=== PATIENT | male | born 1930 | race Caucasian/White ===

== ENCOUNTER 2016-10-27 16:10 | Emergency (ER) | payer MEDICARE ==
[~2016-10-27] VITALS: Ht 180.3 cm; Wt 81.8 kg
--- OUTSIDE RECORDS SUMMARY | 2016-10-27 16:15 | XMS REPORT | Continuity of Care Document ---
Author Author [facility] Address Unknown Phone Unavailable Allergies Medications Problems Date Dx Coded Attending Type Code Diagnosis Diagnosed By 07/27/2014 MARIO BIGGS, IGNACIO M Ot 729.5 07/27/2014 MARIO BIGGS, IGNACIO M Ot 924.3 07/27/2014 MARIO BIGGS, IGNACIO M Ot E928.9 08/03/2014 MARIO BIGGS, IGNACIO M Ot 729.5 08/03/2014 MARIO BIGGS, IGNACIO M Ot 924.3 08/03/2014 MARIO BIGGS, IGNACIO M Ot E928.9 09/09/2015 MARIO BIGGS, IGNACIO M Ot Z51.81 09/09/2015 MARIO BIGGS, IGNACIO M Ot Z79.899 09/14/2015 MARIO BIGGS, IGNACIO M Ot I71.2 09/14/2015 MARIO BIGGS, IGNACIO M Ot K44.9 09/30/2015 MARIO BIGGS, IGNACIO M Ot Z51.81 09/30/2015 MARIO BIGGS, IGNACIO M Ot Z79.899 10/08/2015 MARIO BIGGS, IGNACIO Lee Ot I71.2 THORACIC AORTIC ANEURYSM, 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 10/08/2015 MARIO BIGGS, IGNACIO Lee Ot K44.9 DIAPHRAGMATIC HERNIA WITHOUT OBSTRUCTION 12/02/2015 MARIO BIGGS, IGNACIO Lee Ot I71.2 THORACIC AORTIC ANEURYSM, 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 12/02/2015 MARIO BIGGS, IGNACIO Lee Ot K44.9 DIAPHRAGMATIC HERNIA WITHOUT OBSTRUCTION 02/23/2016 Ot I48.91 UNSPECIFIED ATRIAL FIBRILLATION 02/23/2016 Ot I48.91 UNSPECIFIED ATRIAL FIBRILLATION 02/25/2016 Ot I48.91 UNSPECIFIED ATRIAL FIBRILLATION 02/25/2016 Ot R73.09 OTHER ABNORMAL GLUCOSE 02/26/2016 Ot I48.91 UNSPECIFIED ATRIAL FIBRILLATION 02/26/2016 Ot R73.09 OTHER ABNORMAL GLUCOSE 02/28/2016 Ot I48.91 UNSPECIFIED ATRIAL FIBRILLATION 02/28/2016 Ot R73.09 OTHER ABNORMAL GLUCOSE 02/29/2016 Ot I48.91 UNSPECIFIED ATRIAL FIBRILLATION 02/29/2016 Ot R06.09 OTHER FORMS OF DYSPNEA 03/02/2016 MARIO BIGGS, IGNACIO Lee Ot 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 THORACIC AORTIC ANEURYSM, 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 03/21/2016 Ot I48.91 UNSPECIFIED ATRIAL FIBRILLATION 03/21/2016 Ot R06.09 OTHER FORMS OF DYSPNEA 03/22/2016 MARIO BIGGS IGNACIO Jesus Ot 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 THORACIC AORTIC ANEURYSM, 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 04/06/2016 MARIO BIGGS IGNACIO Lee Ot 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 THORACIC AORTIC ANEURYSM, 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 Procedures Results Test Result Range Complete blood count (CBC) with automated white blood cell (WBC) differential - 02/23/16 10:15 Blood automated leukocyte count 4.32 4.0 -11.0 Erythrocytes 4.68 4.50-5.50 12.0-16.0;g/dL 16.1 13.5-17.0 Hematocrit 45.70 39.00-50.00 Automated erythrocyte mean corpuscular volume 98 80-100 Mean corpuscular hemoglobin (MCH) determination 34.4 26.0-34.0 Automated erythrocyte mean corpuscular hemoglobin concentration measurement ( mass/volume) 35.2 31.0-37.0 Erythrocyte distribution width 12.0 11.8 -15.6 Automated blood platelet count 119 150- 450 Automated blood platelet mean volume measurement 9.7 6.0-9.5 Automated neutrophil percentage 51 51- 67 Lymphocytes/100 leukocytes 28 20-46 Automated monocyte percentage 15 3-11 Eosinophil count auto 5 0-4 Automated basophil percentage 1 0-2 Automated blood neutrophil count 2.2 Blood lymphocytes count (number/volume) 1.2 Automated blood monocyte count 0.6 Blood absolute eosinophil count 0.2 Basophils 0.0 Comprehensive metabolic panel - 02/23/16 10:15 Sodium measurement 117 70-110 Carbon dioxide measurement 23 22-29 Serum or plasma anion gap 18.9 3-15 BLOOD UREA NITROGEN 13 7-18 CREATININE SERUM 0.79 0.8-1.5 Brucella species antibody panel (IgG, IgM) 16 10-20 Estimated glomerular filtration rate (GFR) 112.8 Estimated glomerular filtration rate (GFR) non- 93.2 OSMOLALITY,CALCULATED 280 280-300 CALCIUM 9.8 8.8-10.8 Calculated ionized calcium measurement 4.3 3.8-4.6 BILIRUBIN,TOTAL 1.2 0.1-1.0 Serum or plasma alkaline phosphatase measurement 111 38-126 ASPARTATE AMINO TRANSFERASE 23 15-37 ALANINE AMINOTRANSFERASE 27 30-65 Serum or plasma total protein measurement 7.2 6.4-8.5 Serum or plasma albumin measurement 4.2 3.4-5.0 Serum or plasma albumin/globulin mass ratio 1.400 1.1-1.8 NT-Pro BNP - 02/23/16 10:15 NT-Pro BNP 284 0-450 HEMOGLOBIN A1C* - 02/23/16 10:15 HEMOGLOBIN A1C* 5.3 4.0-6.0 HEMOGLOBIN A1C* - 02/25/16 10:15 HEMOGLOBIN A1C* 5.3 4.0-6.0 Encounters ACCT No. Visit Date/Time Discharge Status Pt. Type Provider Facility Loc./Unit Complaint [id number] 07/13/2014 14:56:00 2014 23:59:59 CLS Outpatient MARIO BIGGS, [facility] RAD [id number] 02/25/2016 11:17:00 ACT Outpatient MARIO BIGGS, [facility] RAD AORTIC ANEURYSM I71.2 [id number] 02/23/2016 11:15:00 Document Registration [id number] 09/07/2015 08:21:00 ACT Outpatient MARIO BIGGS, [facility] RAD [id number] 09/06/2015 14:04:00 ACT Outpatient MARIO BIGGS, [facility] LAB
--- OUTSIDE RECORDS SUMMARY | 2016-10-27 16:17 | XMS REPORT | Continuity of Care Document ---
Author Author [facility] Address Unknown Phone Unavailable Allergies Medications [...] Status Pt. Type Provider Facility Loc./Unit Complaint [id number] 07/13/2014 14:56:00 2014 23:59:59 CLS Outpatient MARIO BIGGS, [facility] RAD [id number] 02/25/2016 11:17:00 ACT Outpatient MARIO BIGGS, [facility] RAD AORTIC ANEURYSM I71.2 [id number] 02/23/2016 11:15:00 Document Registration [id number] 09/07/2015 08:21:00 ACT Outpatient MARIO BIGGS, [facility] RAD [id number] 09/06/2015 14:04:00 ACT Outpatient MARIO BIGGS, [facility] LAB
[2016-10-27] MEDS ORDERED: TAMS0.4C2 PO (16:41)
[2016-10-27] MEDS ORDERED: LOVA20TA2 PO (16:41)
--- NOTE | 2016-10-27 17:22 | Diagnostic Imaging Report ---
INDICATION: Pain after fall. Three views were obtained. FINDINGS: There is a minimally displaced oblique fracture through the distal fifth metatarsal. There are otherwise mild degenerative changes. There is no other fracture or dislocation. Soft tissues are unremarkable. IMPRESSION: Minimally displaced oblique fracture through the distal aspect of the left fifth metatarsal. Mild degenerative changes in the ankle and midfoot. Dictated by: Dictated on workstation # [id number]
--- NOTE | 2016-10-27 17:23 | Diagnostic Imaging Report ---
INDICATION: Pain after fall. Three views were obtained. FINDINGS: The alignment of the ankle is normal. The plafonds and talar dome are intact. Ankle mortise is symmetric. There are degenerative changes. IMPRESSION: Degenerative changes, otherwise unremarkable. Dictated by: Dictated on workstation # [id number]
[2016-10-27] MEDS ORDERED: TRM50T PO (17:30)
[2016-10-27 17:48] VITALS: BP 114/71
== END 2016-10-27 17:52 | disposition home or self-care (01) ==
LOC: ED 16:12
DX: S93.492A Sprain of other ligament of left ankle, initial encounter (principal); W18.39XA Other fall on same level, initial encounter; Y92.009 Unspecified place in unspecified non-institutional (private) residence as the place of occurrence of the external cause
CPT/HCPCS: 73610; 73630; 99283; L4386

== ENCOUNTER → 2016-10-31 | Outpatient (REF) | payer MEDICARE ==
[~2016-10-31] MED LIST: LOVA20TA2 PO; TAMS0.4C2 PO; TRM50T PO
== END ==
LOC: LAB 11:23
PROVIDERS: ATTEND Physician Assistant Surgical
DX: I71.2 Thoracic aortic aneurysm, without rupture (principal)
CPT/HCPCS: 80048

== ENCOUNTER → 2016-10-31 | Outpatient (CLI) | payer MEDICARE ==
--- NOTE | 2016-10-31 14:40 | Diagnostic Imaging Report ---
PROCEDURE: CT chest with contrast only. TECHNIQUE: Multiple contiguous axial images were obtained through the chest after administration of intravenous contrast. INDICATION: Followup ascending aortic root aneurysm. Comparison with 02/25/2016. FINDINGS: Bolus injection shows good opacification of the aorta. Aortic root measures approximately 5 cm in greatest diameter. No evidence of aortic dissection. The descending thoracic aorta measures 3.5 cm. There are dense coronary artery calcification. The pulmonary arteries appear normal with good opacification. No mediastinal or hilar adenopathy of pathologic size. The lungs well-aerated. Mild dependent atelectasis noted in the lung bases. No infiltrates or masses. No pleural effusions or pericardial effusion. IMPRESSION: 1. Stable ascending aortic root aneurysm measuring approximately 5 cm. 2. Dense coronary artery calcification. 3. Lungs remain clear. Dictated by: Dictated on workstation # [id number]
== END ==
LOC: RAD 13:20
PROVIDERS: ATTEND Family Medicine
DX: I71.2 Thoracic aortic aneurysm, without rupture (principal)
CPT/HCPCS: 71260; Q9967